=== PATIENT | female | born 1980 | race Caucasian/White ===

== ENCOUNTER → 2016-10-02 | Outpatient (CLI) | payer OTHER ==
[~2016-10-02] MED LIST: IRON325T2 PO; OXYC1SOL5 PO; PREN1TAB30; SYNT25TA PO
== END ==
LOC: HPND 11:00
PROVIDERS: ATTEND Obstetrics & Gynecology
DX: O36.0191 Maternal care for anti-D [Rh] antibodies, unspecified trimester, fetus 1 (principal); Z41.8 Encounter for other procedures for purposes other than remedying health state
CPT/HCPCS: 90384; 96372; J2790

== ENCOUNTER 2016-11-05 14:10 | Inpatient (IN) | payer OTHER ==
--- NOTE | 2016-12-11 09:56 | MH ---
cc: VALE FLORES DATE OF ADMISSION 12/12/2016 ADMISSION DIAGNOSIS 1. Term 2. Advanced maternal age 36 3. Previous 4. Multiparity HISTORY OF PRESENT ILLNESS The patient is a 36-year-old white female para 1-0-1-1, LMP of 03/14/2016, EDC of 12/19/2016, first delivery by . She is now admitted for repeat section and bilateral tubal interruption. PAST MEDICAL HISTORY Previous surgery: 1. In 2010, she had a laparoscope cholecystectomy for stones. 2. In 2014, for term with large BPD and gestational diabetes. MEDICATIONS Vitamins ALLERGIES None TRANSFUSIONS None Had hypothyroid in 2012 that resolved. SOCIAL HISTORY She is . She is a [employer] Employee at [employer]. Alcohol, tobacco and drugs are none. PHYSICAL EXAM This is a gravid white female in no distress. HEENT: Exam is normal. CHEST: Clear. HEART: Regular rate. BREASTS: The breasts are symmetrical. ABDOMEN: The abdomen is gravid. EFW at 3400 grams. Cervix long, thick and closed. ASSESSMENT Term , previous , advanced maternal age, multiparity. PLAN She is now admitted for repeat section and desires a bilateral tubal interruption. She has been explained that tubal is permanent and nonreversible. There is a small risk of failure and she would like to proceed. MD REAL Ramon/RENATO /7:40 AM /8:49 AM
[2016-12-12] MEDS ORDERED: LACTATED RINGER'S 1000 ML IV SCH (06:30)
[2016-12-12] MEDS ORDERED: LACTATED RINGER'S 1000 ML IV ONE (06:30)
[2016-12-12] MEDS ORDERED: ceFAZolin 2 GM PREMIX 50 ML IV SCH (06:30)
[2016-12-12] MEDS ORDERED: OXYTOCIN 10 UNIT/ML AMP ONE (07:14)
[2016-12-12] MEDS: CITRIC ACID-SODIUM CITRATE LIQ 30 ML UDC PO SCH ×2 (07:17→10:33)
[2016-12-12] MEDS ORDERED: SODIUM CHLORIDE 0.9% FLUSH 5 ML FLUSH IV PRN (07:30)
[2016-12-12] MEDS ORDERED: KETOROLAC TROMETHAMINE 60 MG/2 ML (IM) VIAL IM PRN (07:30)
[2016-12-12] MEDS ORDERED: OXYTOCIN 30 UNITS-500ML PREMIX 500 ML IV ONE (07:30)
[2016-12-12] MEDS ORDERED: ZOLPIDEM TARTRATE 5 MG TAB PO PRN (07:30)
[2016-12-12] MEDS ORDERED: KETOROLAC TROMETHAMINE 30 MG/ML (IVP) VIAL IV PUSH PRN (07:30)
[2016-12-12] MEDS ORDERED: oxyCODONE/ACETAMINOPHEN 5 MG/325 MG TAB PO PRN ×2 (07:30)
[2016-12-12] MEDS ORDERED: MEASLES, MUMPS, RUBELLA VACCINE 0.5 ML VIAL SQ ONE (07:30)
[2016-12-12] MEDS ORDERED: ONDANSETRON HCL 4 MG/2 ML VIAL IVP PRN (07:30)
[2016-12-12] MEDS ORDERED: SIMETHICONE 80 MG CHEWABLE TAB PO PRN (07:30)
[2016-12-12] MEDS ORDERED: ACETAMINOPHEN 1000 MG/100 ML VIAL IV ONE (07:43)
[2016-12-12 07:53] LABS: AUTOMATED NEUTROPHIL # 7.1 TH/MM3 (1.8-7.7); BASOPHIL # 0.1 TH/MM3 (0-0.2); BASOPHIL % 0.8 % (0.0-2.0); EOSINOPHIL # 0.1 TH/MM3 (0-0.4); EOSINOPHIL % 0.6 % (0.0-4.0); HEMATOCRIT 36.1 % (35.0-46.0); HEMO FLAGS DIFF FINAL; LYMPHOCYTE # 2.1 TH/MM3 (1.0-4.8); MEAN CELL VOLUME 87.8 FL (80.0-100.0); MEAN CORPUSCULAR HEMOGLOBIN 29.8 PG (27.0-34.0); MEAN CORPUSCULAR HGB CONC 33.9 % (32.0-36.0); MONO % 5.7 % (0.0-8.0); NEUT % 71.9 % (16.0-70.0); PLATELET COUNT 288 TH/MM3 (150-450); RED BLOOD COUNT 4.11 MIL/MM3 (4.00-5.30); RED CELL DISTRIBUTION WIDTH 15.1 % (11.6-17.2); WHITE BLOOD COUNT 9.9 TH/MM3 (4.0-11.0)
[2016-12-12 07:54] LABS: BLOOD, URINE NEG (NEG); COMMENT (UR) CULT NOT INDICATED; CULTURE IF INDICATED CULT NOT INDICATED; GLUCOSE,URINE NEG (NEG); KETONE, URINE 10 mg/dL (NEG); NITRITE,URINE NEG (NEG); PH, URINE 6.5 (5.0-8.5); SQUAMOUS EPITHELIAL CELL URINE 5 /hpf (0-5); URINE COLOR LIGHT-YELLOW (YELLW/STRAW)
[2016-12-12] MEDS: ACETAMINOPHEN 1000 MG/100 ML VIAL IV SCH ×3 (08:00→23:13)
[2016-12-12] MEDS ORDERED: ONDANSETRON HCL 4 MG/2 ML VIAL ONE (08:24)
[2016-12-12] MEDS ORDERED: MORPHINE SULFATE PF 5 MG/10 ML VIAL ONE (08:24)
[2016-12-12] MEDS ORDERED: SODIUM CHLORIDE 0.9% FLUSH 5 ML FLUSH IV SCH (09:00)
[2016-12-12] MEDS ORDERED: LACTATED RINGER'S 1,000 ML BAG IV ONE (09:03)
[2016-12-12] MEDS ORDERED: ePHEDrine/NS 50 MG/5 ML SYR IV ONE (09:03)
[2016-12-12] MEDS ORDERED: OXYTOCIN 30 UNITS-500ML PREMIX 500 ML ONE (09:26)
[2016-12-12] MEDS ORDERED: LACTATED RINGER'S 1000 ML INJ 1,000 ML IV SCH (13:04)
[2016-12-12] MEDS ORDERED: OXYTOCIN 30 UNITS-500ML PREMIX 500 ML IV PRN (18:15)
[2016-12-13] MEDS: IBUPROFEN 600 MG TAB PO PRN ×3 (05:25→21:11)
[2016-12-13] MEDS: DOCUSATE SODIUM 50 MG/SENNA 8.6 MG TAB PO PRN ×2 (05:25→15:26)
[2016-12-13 05:57] LABS: AUTOMATED NEUTROPHIL # 9.8 TH/MM3 (1.8-7.7); BASOPHIL # 0.1 TH/MM3 (0-0.2); BASOPHIL % 0.6 % (0.0-2.0); EOSINOPHIL # 0.1 TH/MM3 (0-0.4); EOSINOPHIL % 0.5 % (0.0-4.0); HEMATOCRIT 30.9 % (35.0-46.0); HEMO FLAGS DIFF FINAL; LYMPH % 13.4 % (9.0-44.0); LYMPHOCYTE # 1.6 TH/MM3 (1.0-4.8); MEAN CELL VOLUME 87.8 FL (80.0-100.0); MEAN CORPUSCULAR HEMOGLOBIN 29.5 PG (27.0-34.0); MEAN CORPUSCULAR HGB CONC 33.6 % (32.0-36.0); MONO % 5.2 % (0.0-8.0); NEUT % 80.3 % (16.0-70.0); PLATELET COUNT 215 TH/MM3 (150-450); RED BLOOD COUNT 3.52 MIL/MM3 (4.00-5.30); WHITE BLOOD COUNT 12.1 TH/MM3 (4.0-11.0)
[2016-12-13 06:28] LABS: BICARBONATE 29.2 MEQ/L (21.0-32.0); POTASSIUM 3.4 MEQ/L (3.5-5.1)
[2016-12-13 08:00] VITALS: BP 99/62; PULSE 73; RESP 18; TEMP 97.9
[2016-12-13 20:00] VITALS: BP 125/82; PULSE 104; PULSE 20; RESP 20; TEMP 97.6
--- NOTE | 2016-12-14 06:10 | HHI.DCPOC ---
Discharge Care Plan Report Symptoms to Your Doctor -Temperate above 100.5 degrees -Redness, of incision or excessive or foul smelling drainage -Unusual pain or calf pain -Increased vaginal bleeding -Painful or difficulty urinating -Feelings of extreme sadness or anxiety after 2 weeks Goals to Promote Your Health * To prevent worsening of your condition and complications * To maintain your health at the optimal level Directions to Meet Your Goals Take your medications as prescribed Follow your dietary instruction Follow activity as directed Ensure plenty of rest for recovery Drink fluids for hydration Keep your appointments as scheduled Take your immunizations and boosters as scheduled If your symptoms worsen call your PCP, if no PCP go to Urgent Care Center or Emergency Room Smoking is Dangerous to Your Health. Avoid second hand smoke Call the 24-hour crisis hotline for domestic abuse at Blake Bowden MD Dec 14, 2016 06:10
[2016-12-14] MEDS: IBUPROFEN 600 MG TAB PO PRN (06:20)
[2016-12-14] MEDS: DOCUSATE SODIUM 50 MG/SENNA 8.6 MG TAB PO PRN (06:21)
--- NOTE | 2016-12-14 08:10 | MP ---
cc: SANDRAVALE DATE OF SURGERY 12/12/2016 PREOPERATIVE DIAGNOSIS 1. Term , advanced maternal, age 36 2. Previous POSTOPERATIVE DIAGNOSIS 1. Term , advanced maternal, age 36 2. Previous 3. Delivered PROCEDURE Repeat low transverse section. ANESTHESIA Spinal SURGEON Vale Bowden MD BENCH MOVER Eli Zhao ESTIMATED BLOOD LOSS FOR THE PROCEDURE 500 cc FLUIDS 1 liter of Crystalloid OBJECTIVE FINDINGS Following induction of adequate spinal anesthesia, the patient was prepped and draped supine on the operating table left lateral tilt position in the usual sterile fashion with the bladder being drained via Bishop catheterization. The abdomen was opened through a Pfannenstiel incision using a knife to excise her old scar. The fascia opened transversely, stripped the muscles, rectus muscle split in the midline and the peritoneum opened sharply without incident. The bladder flap was taken down sharply and retracted inferiorly with a [place] blade. The lower uterine segment was incised transversely with a knife, extended with blunt dissection, membranes ruptured revealing clear fluid slightly meconium-stained. The baby was LOT position. The vacuum extractor applied to the occiput and used to gently lift the head through the uterine abdominal wound. The mouth was suctioned. Nuchal cord reduced, cord clamped and cut and the baby passed to the awaiting team. A viable vigorous female 's 9 and 9, weight 7 pounds 14 ounces. Cord blood was collected for typing. Placenta manually removed and the uterine cavity cleaned with laps. The uterus was exteriorized and closed in two layers with running suture, first with a running locking stitch of 0-Vicryl, second running imbricating stitch of Vicryl. Posterior inspection reveals normal tubes and ovaries. The uterus is now replaced in the peritoneal cavity. Irrigation performed. No bleeding was evident. The bladder flap was closed with a running stitch of 2-0 Vicryl. All laps and retractors were removed. Counts were correct. The anterior peritoneum closed running stitch of 2-0 Vicryl. Fascia closed with running locking stitch of 0-Vicryl corner to midline and tied, subcu with running 3-0 Vicryl and skin with a running subcuticular 3-0 Monocryl. Dermabond applied. All counts correct and the patient was awake and taken to the recovery room in good condition. MD REAL Ramon/RENATO /8:20 AM /8:01 AM MTDLoree
[2016-12-14 08:21] VITALS: BP 115/71; PULSE 81; RESP 18; TEMP 98.1
[2016-12-14] MEDS ORDERED: DIPHTH/TETANUS/ACEL PERTUSSIS (BOOSTER) 0.5 ML VIAL/PFS IM ONE (09:00)
--- NOTE | 2016-12-19 07:39 | MD ---
cc: VALE FLORES ADMISSION DATE: 12/12/2016 DISCHARGE DATE: 12/14/2016 ADMITTING DIAGNOSIS 1. Term . 2. Advanced maternal age. 3. Previous . DISCHARGE DIAGNOSIS 1. Term . 2. Advanced maternal age. 3. Previous . 4. Delivered. PROCEDURE Repeat low transverse section on 12/12/2016. HISTORY OF PRESENT ILLNESS A 36-year-old white female, para 1-0-0-1, with an EDC of 12/19/2016, was admitted for repeat section on 12/12/2016. She had delivery of a viable vigorous female, Apgars 9 and 9, weight 7 pounds 14 ounces. The baby's name is Patricio. The patient is breast feeding. Discharged home in excellent condition on 12/14/2016. Her pre and post-op labs were normal. She received RhoGAM on 12/13/2016. She was advised NPV, light activity, no driving, return to see me in one week. She is to call for abnormal pain, bleeding, temperature, signs of infection or depression. She was given scripts for Percocet 5, 1-2 p.o. q.4h. p.r.n. pain, #60. MD REAL Ramon/BT /6:18 AM /7:24 AM
== END 2016-12-14 13:32 | disposition home or self-care (01) | DRG 766 ==
LOC: H2EB 12-12 05:44 → H1EA 12-12 10:20
PROVIDERS: ADMIT Obstetrics & Gynecology; ATTEND Obstetrics & Gynecology
PROC: 10D00Z1 Extraction of Products of Conception, Low, Open Approach (ICD-10-PCS; principal; 2016-12-12)
DX: O34.211 Maternal care for low transverse scar from previous cesarean delivery (principal); O77.0 Labor and delivery complicated by meconium in amniotic fluid; O09.523 Supervision of elderly multigravida, third trimester; Z3A.00 Weeks of gestation of pregnancy not specified; Z37.0 Single live birth; O69.81X0 Labor and delivery complicated by cord around neck, without compression, not applicable or unspecified; Z86.32 Personal history of gestational diabetes
CPT/HCPCS: 59025; 80048; 81001; 85025; 85461; 86850; 86900; 86901; 90384; 90715; J0131; J0690; J1885; J2274; J2405; J2590; J2790; J3010; J7120

== ENCOUNTER → 2016-11-23 | Outpatient (CLI) | payer OTHER | LOC: HPND 07:58 | PROVIDERS: ATTEND Obstetrics & Gynecology | DX: O26.843 Uterine size-date discrepancy, third trimester (principal); O09.523 Supervision of elderly multigravida, third trimester; O34.211 Maternal care for low transverse scar from previous cesarean delivery | CPT/HCPCS: 76816 ==

== ENCOUNTER → 2017-03-20 | Outpatient (CLI) | payer OTHER ==
[2017-03-20 12:18] LABS: HEMATOCRIT 40.2 % (35.0-46.0); MEAN CELL VOLUME 85.3 FL (80.0-100.0); MEAN CORPUSCULAR HEMOGLOBIN 28.1 PG (27.0-34.0); PLATELET COUNT 350 TH/MM3 (150-450); RED BLOOD COUNT 4.72 MIL/MM3 (4.00-5.30); RED CELL DISTRIBUTION WIDTH 15.6 % (11.6-17.2); REVIEW FLAG FINAL; WHITE BLOOD COUNT 8.1 TH/MM3 (4.0-11.0)
[2017-03-20 12:56] LABS: FREE T4 0.84 NG/DL (0.76-1.46)
== END ==
LOC: ELAB 08:43
PROVIDERS: ATTEND Obstetrics & Gynecology
DX: R53.83 Other fatigue (principal)
CPT/HCPCS: 36415; 84439; 84443; 84480; 85027